=== PATIENT | female | born 1985 | race Caucasian/White ===

== ENCOUNTER 2017-09-22 00:16 | Emergency (ER) | payer MEDICAID ==
[~2017-09-22] VITALS: Ht 167.6 cm; Wt 63.5 kg
[~2017-09-22 00:16] MED LIST: FLUO20CA25 PO; IBP600T1 PO; METR500T PO; NITR-65 PO; OXYC1TAB87 PO; PREN1TAB39 PO
[2017-09-22] MEDS ORDERED: ACETAMINOPHEN 500 MG TAB (TYLENOL) PO ONE (00:45)
[2017-09-22] MEDS ORDERED: IBUPROFEN 800 MG (MOTRIN) TAB PO ONE (00:45)
[2017-09-22 00:52] LABS: BASOPHILS # (AUTO) 0.1 10^3/uL (0.0-0.1); BASOPHILS % (AUTO) 0 % (0-10); EOSINOPHILS # (AUTO) 0.2 10^3/uL (0.0-0.3); EOSINOPHILS % (AUTO) 1 % (0-10); HEMATOCRIT 43 % (35-52); HEMOGLOBIN 15.4 G/DL (11.5-16.0); LYMPHOCYTES # (AUTO) 2.7 X 10^3 (1.0-4.0); LYMPHOCYTES % (AUTO) 14 % (12-44); MEAN CORPUSCULAR HEMOGLOBIN 33 PG (25-34); MEAN CORPUSCULAR HGB CONC 36 G/DL (32-36); MEAN CORPUSCULAR VOLUME 91 FL (80-99); MEAN PLATELET VOLUME 9.2 FL (7.4-10.4); MONOCYTES # (AUTO) 1.6 X 10^3 (0.0-1.0); MONOCYTES % (AUTO) 9 % (0-12); NEUTROPHILS % (AUTO) 76 % (42-75); PLATELET COUNT 374 10^3/uL (130-400); RED BLOOD COUNT 4.73 10^6/uL (4.35-5.85); RED CELL DISTRIBUTION WIDTH 12.8 % (10.0-14.5); WHITE BLOOD COUNT 18.6 10^3/uL (4.3-11.0)
--- NOTE | 2017-09-22 01:07 | ED Chest Pain ---
General Chief Complaint: Chest Pain Stated Complaint: CHEST PAIN FOR 2 MONTHS Nursing Triage Note: PT PRESENTS TO ER WITH COMPLAINT OF CHEST PAIN X2 MONTHS. STATES IT IS AROUND HER LEFT BREAST AREA. ALSO REPORTS A COUGH AND INTERMITTENT LEFT ARM NUMBNESS. Nursing Sepsis Screen: No Definite Risk Source: patient History of Present Illness Date Seen by Provider: Sep 22, 2017 Time Seen by Provider: 00:43 Initial Comments C/O DIFFUSE LEFT ANTERIOR CHEST PAIN FOR 2-3 MONTHS, OR LONGER NOTHING WORSENS OR IMPROVES PAIN NO RADIATION OF PAIN HAS NOT TAKEN ANYTHING FOR PAIN SYMPTOMS NO DIFFERENT TODAY HAS HAD A PRODUCTIVE COUGH FOR 2-3 WEEKS--GREEN SPUTUM HAS HAD GREEN SINUS DRAINAGE AND PAIN ALSO FOR A FEW WEEKS PT HAS TEMP OF 101--UNAWARE THAT SHE HAD FEVER NO SHORTNESS OF BREATH MULTIPLE SICK CONTACTS AT HOME WITH COLD SYMPTOMS PT IS SMOKER DENIES HISTORY OF SIMILAR OR HISTORY OF RESPIRATORY PROBLEMS LMP 08/28/17, NORMAL, IUD IN PL[facility] [place] Allergies and Home Medications Allergies Coded Allergies: No Known Drug Allergies (Verified , 07/31/08) Home Medications Amoxicillin/Potassium Clav 1 Each Tablet, 1 EACH PO BID Prescribed by: RANDALL HUDSON on 09/22/17202 Benzonatate 100 Mg Capsule, 1-2 TAB PO TID Prescribed by: RANDALL HUDSON on 09/22/17202 Fluoxetine HCl 20 Mg Capsule, 1 CAP PO DAILY, (Reported) Fluticasone Propionate 9.9 M[address] [facility].susp, 2 SPRAYS NS BID Prescribed by: RANDALL HUDSON on 09/22/17202 Guaifenesin/Dextromethorphan 1 Each Tbmp.12hr, 1 EACH PO BID Prescribed by: RANDALL HUDSON on 09/22/17202 Loratadine/Pseudoephedrine 1 Each Tab.er.12h, 1 EACH PO BID Prescribed by: RANDALL HUDSON on 09/22/17202 Methylprednisolone 4 Mg Tab.ds.pk, 4 MG PO UD Prescribed by: RANDALL HUDSON on 09/22/17202 Nitrofurantoin Monohyd/M-Cryst 100 Mg Capsule, 100 MG PO BID Prescribed by: RANDALL HUDSON on 08/28/150 Review of Systems Constitutional: see HPI EENTM: Nose Congestion Respiratory: See HPI, Cough, Denies Shortness of Air, Denies Wheezing Cardiovascular: See HPI, Chest Pain, Denies Edema, Denies Lightheadedness, Denies Palpitations, Denies Syncope Gastrointestinal: No Symptoms Reported Genitourinary: No Symptoms Reported Musculoskeletal: no symptoms reported Skin: no symptoms reported Psychiatric/Neurological: No Symptoms Reported Endocrine: No Symptoms Reported Hematologic/Lymphatic: No Symptoms Reported Past [id number] Hx Patient Social History Alcohol Use: Regular Use (COUPLE OF DRINKS A DAY) Recreational Drug Use: No Smoking Status: Current Everyday Smoker (<1 PPD) Recent Foreign Travel: No Contact w/Someone Who Travel: No Recent Infectious Disease Expo: No Recent Hopitalizations: No (knee surgery, T & A) Immunizations Up To Date Tetanus Booster (TDap): Unknown Date of Influenza Vaccine: Jun 05, 2013 Seasonal Allergies Seasonal Allergies: No Surgeries History of Surgeries: Yes (LEFT KNEE SCOPE; WISDOM TEETH EXTRACTED ) Surgeries: Adenoidectomy, Orthopedic, Tonsillectomy Respiratory History of Respiratory Disorde: No Cardiovascular History of Cardiac Disorders: No Neurological History of Neurological Disord: No Reproductive System Hx Reproductive Disorders: No Sexually Transmitted Disease: Yes (HISTORY OF GONORRHEA) 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 History: IUD Genitourinary History of Genitourinary Disor: No Gastrointestinal History of Gastrointestinal Di: No Musculoskeletal History of Musculoskeletal Dis: Yes (LEFT KNEE SCOPE) Endocrine History of Endocrine Disorders: No HEENT History of HEENT Disorders: Yes (S/P T&A) HEENT Disorders: Tonsilitis Cancer History of Cancer: No Psychosocial History of Psychiatric Problem: Yes Behavioral Health Disorders: Anxiety, Depression Integumentary History of Skin or Integumenta: No Blood Transfusions History of Blood Disorders: No Adverse Reaction to a Blood Tr: No Family Medical History Family Medial History: Patient reports no known family medical history. Physical Exam Vital Signs Vital Signs - First Documented 09/22/17 00:29 Temp 101.2 Pulse 111 Resp 20 B/P (MAP) 140/94 (109) Pulse Ox 97 O2 Delivery Room Air Capillary Refill : Less Than 3 Seconds General Appearance: No Apparent Distress, WD/WN HEENT: PERRL/EOMI, TMs Normal, Pharynx Normal, Other (NASAL MUCOSAL EDEMA AND CLEAR RHINORRHEA. DIFFUSE SINUS TENDERNESS, WITH MOST TENDERNESS OVER FRONTAL SINUSES) Neck: Full Range of Motion, Normal Inspection, Non Tender, Supple, No Carotid Bruit, No JVD, No Lymphadenopathy (L), No Lymphadenopathy (R) Respiratory: Normal Breath Sounds, No Accessory Muscle Use, No Respiratory Distress, Other (DIFFUSE LEFT ANTERIOR CHEST WALL TENDERNESS. 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 Norm as Tested Skin: Normal Color, Warm/Dry, No Rash, Tattoos/Piercings (MULTIPLE TATTOOS) Focused Exam Evaluation Lactate Level Laboratory Tests 09/22/17 00:58: Lactic Acid Level 1.66 Lactic Acid Level Laboratory Tests Test 09/22/17 00:58 Lactic Acid Level 1.66 MMOL/L (0.50-2.00) Progress/Results/Core Measures Results/Orders Lab Results Laboratory Tests Test 09/22/17 00:35 09/22/17 00:58 Range/Units White Blood Count 18.6 H 4.3-11.0 10^3/uL Red Blood Count 4.73 4.35-5.85 10^6/uL Hemoglobin 15.4 11.5-16.0 G/DL Hematocrit 43 35-52 % Mean Corpuscular Volume 91 80-99 FL Mean Corpuscular Hemoglobin 33 25-34 PG Mean Corpuscular Hemoglobin Concent 36 32-36 G/DL Red Cell Distribution Width 12.8 10.0-14.5 % Platelet Count 374 130-400 10^3/uL Mean Platelet Volume 9.2 7.4-10.4 FL Neutrophils (%) (Auto) 76 H 42-75 % Lymphocytes (%) (Auto) 14 12-44 % Monocytes (%) (Auto) 9 0-12 % Eosinophils (%) (Auto) 1 0-10 % Basophils (%) (Auto) 0 0-10 % Neutrophils # (Auto) 14.0 H 1.8-7.8 X 10^3 Lymphocytes # (Auto) 2.7 1.0-4.0 X 10^3 Monocytes # (Auto) 1.6 H 0.0-1.0 X 10^3 Eosinophils # (Auto) 0.2 0.0-0.3 10^3/uL Basophils # (Auto) 0.1 0.0-0.1 10^3/uL Neutrophils % (Manual) 81 % Lymphocytes % (Manual) 7 % Monocytes % (Manual) 10 % Eosinophils % (Manual) 1 % Band Neutrophils 1 % Blood Morphology Comment NORMAL Urine Color YELLOW Urine Clarity SLIGHTLY CLOUDY Urine pH 6 5-9 Urine Specific [place] 1.010 L 1.016-1.022 Urine Protein NEGATIVE NEGATIVE Urine Glucose (UA) NEGATIVE NEGATIVE Urine Ketones NEGATIVE NEGATIVE Urine Nitrite NEGATIVE NEGATIVE Urine Bilirubin NEGATIVE NEGATIVE Urine Urobilinogen NORMAL NORMAL MG/DL Urine Leukocyte Esterase 1+ H NEGATIVE Urine RBC (Auto) NEGATIVE NEGATIVE Urine RBC NONE /HPF Urine WBC RARE /HPF Urine Squamous Epithelial Cells 25-50 H /HPF Urine Crystals NONE /LPF Urine Bacteria TRACE /HPF Urine Casts NONE /LPF Urine Mucus NEGATIVE /LPF Urine Culture Indicated NO Sodium Level 139 135-145 MMOL/L Potassium Level 3.8 3.6-5.0 MMOL/L Chloride Level 105 98-107 MMOL/L Carbon Dioxide Level 19 L 21-32 MMOL/L Anion Gap 15 H 5-14 MMOL/L Blood Urea Nitrogen 6 L 7-18 MG/DL Creatinine 0.74 0.60-1.30 MG/DL Estimat Glomerular Filtration Rate > 60 BUN/Creatinine Ratio 8 Glucose Level 93 70-105 MG/DL Calcium Level 9.4 8.5-10.1 MG/DL Total Bilirubin 0.4 0.1-1.0 MG/DL Aspartate Amino Transf (AST/SGOT) 19 5-34 U/L Alanine Aminotransferase (ALT/SGPT) 19 0-55 U/L Alkaline Phosphatase 74 40-136 U/L Total Protein 8.2 6.4-8.2 GM/DL Albumin 4.6 H 3.2-4.5 GM/DL Serum Test, Qualitative NEGATIVE NEGATIVE Lactic Acid Level 1.66 0.50-2.00 MMOL/L Micro Results Microbiology 09/22/17 Influenza Types A,B Antigen (THIAGO) - Final, Complete My Orders Orders - RANDALL HUDSON DO Saline Lock/Iv-Start (09/22/17 00:43) Cbc With Automated Diff (09/22/17 00:43) Comprehensive Metabolic Panel (09/22/17 00:43) Hcg,Qualitative Serum (09/22/17 00:43) Lactic Acid Analyzer (09/22/17 00:43) Ua Culture If Indicated (09/22/17 00:43) Blood Culture (09/22/17 00:43) Influenza A And B Antigens (09/22/17 00:43) Chest Pa/Lat (2 View) (09/22/17 00:43) Acetaminophen Tablet (Tylenol Tablet) (09/22/17 00:45) Ibuprofen Tablet (Motrin Tablet) (09/22/17 00:45) Manual Differential (09/22/17 00:35) Ceftriaxone Injection (Rocephin Injectio (09/22/17 02:00) Ketorolac Injection (Toradol Injection) (09/22/17 02:00) Medications Given in ED Current Medications Medications Dose Ordered Sig/Barrett Route Start Time Stop Time Status Last Admin Dose Admin Acetaminophen 1,000 mg ONCE ONCE PO 09/22/17 00:45 09/22/17 00:46 DC 09/22/17 00:55 1,000 MG Ibuprofen 800 mg ONCE ONCE PO 09/22/17 00:45 09/22/17 00:46 DC 09/22/17 00:55 800 MG Vital Signs/I&O Vital Sign - Last 12Hours 09/22/17 00:29 Temp 101.2 Pulse 111 Resp 20 B/P (MAP) 140/94 (109) Pulse Ox 97 O2 Delivery Room Air Blood Pressure Mean: 109 Diagnostic Imaging Comments CXR--NO ACUTE PROCESS, PENDING RADIOLOGIST REVIEW Reviewed: Reviewed by Me Departure Impression Impression: Primary Impression: Bronchitis Additional Impressions: LEFT ANTEROR CHEST WALL PAIN Sinusitis Disposition: 01 HOME, SELF-CARE Condition: Stable Departure-Patient Inst. Referrals: NO,LOCAL PHYSICIAN (PCP/Family) Primary Care Physician Patient Instructions: Acute Bronchitis, Adult (DC), Costochondritis (DC), Sinusitis, Adult (DC) Add. Discharge Instructions: LOTS OF CLEAR LIQUIDS TYLENOL 1 GRAM / MOTRIN 800 MG 4 TIMES A DAY FOR PAIN OR FEVER FOLLOW UP WITH YOUR DR IN 4-5 DAYS FOR FURTHER CARE All discharge instructions reviewed with patient and/or family. Voiced understanding. Scripts Benzonatate (Tessalon Perle) 100 Mg Capsule 1-2 TAB PO TID for Cough, #30 CAP Prov: RANDALL HUDSON DO 09/22/17 Guaifenesin/Dextromethorphan (Mucinex Dm ER 1,200-60 mg Tab) 1 Each Tbmp.12hr 1 EACH PO BID for 10 Days, #20 EA Prov: RANDALL HUDSON DO 09/22/17 Methylprednisolone (Medrol) 4 Mg Tab.ds.pk 4 MG PO UD, #1 PKG Prov: RANDALL HUDSON DO 09/22/17 Fluticasone Propionate (Flonase Allergy Relief) 9.9 [address] [facility].susp 2 SPRAYS NS BID, #1 SPRAY Prov: RANDALL HUDSON DO 09/22/17 Loratadine/Pseudoephedrine (Claritin-D 12 Hour Tablet) 1 Each Tab.er.12h 1 EACH PO BID for Congestion, #30 TAB Prov: RANDALL HUDSON DO 09/22/17 Amoxicillin/Potassium Clav (Augmentin 875-125 Tablet) 1 Each Tablet 1 EACH PO BID for INFECTION, #30 TAB Prov: RANDALL HUDSON DO 09/22/17 RANDALL HUDSON DO Sep 22, 2017 01:07
[2017-09-22 01:11] LABS: ALANINE AMINOTRANSFERASE 19 U/L (0-55); ALBUMIN 4.6 GM/DL (3.2-4.5); ALKALINE PHOSPHATASE 74 U/L (40-136); BILIRUBIN,TOTAL 0.4 MG/DL (0.1-1.0); BUN/CREATININE RATIO 8; CALCIUM 9.4 MG/DL (8.5-10.1); CARBON DIOXIDE 19 MMOL/L (21-32); CHLORIDE 105 MMOL/L (98-107); CREATININE SERUM 0.74 MG/DL (0.60-1.30); GFR ESTIMATED > 60; GLUCOSE 93 MG/DL (70-105); POTASSIUM 3.8 MMOL/L (3.6-5.0); SODIUM 139 MMOL/L (135-145); TOTAL PROTEIN 8.2 GM/DL (6.4-8.2)
[2017-09-22 01:12] LABS: BILIRUBIN,URINE NEGATIVE (NEGATIVE); CLARITY,URINE SLIGHTLY CLOUDY; COLOR,URINE YELLOW; GLUCOSE, URINE (UA) NEGATIVE (NEGATIVE); KETONES,URINE NEGATIVE (NEGATIVE); LEUKOCYTE ESTERASE ,URINE 1+ (NEGATIVE); NITRITE,URINE NEGATIVE (NEGATIVE); PH,URINE 6 (5-9); PROTEIN,URINE NEGATIVE (NEGATIVE); UROBILINOGEN,URINE NORMAL (NORMAL)
[2017-09-22 01:37] LABS: BACTERIA,URINE TRACE /HPF; SQUAMOUS EPITHELIAL CELL,UR 25-50 /HPF; WBC,URINE RARE /HPF
[2017-09-22 01:38] LABS: BAND NEUTROPHILS 1 %; EOSINOPHILS % (MANUAL) 1 %; LYMPHOCYTES % (MANUAL) 7 %; MONOCYTES % (MANUAL) 10 %; NEUTROPHILS % (MANUAL) 81 %; RBC MORPH NORMAL
[2017-09-22] MEDS ORDERED: KETOROLAC 30 MG/ML VIAL IVP ONE (02:00)
[2017-09-22] MEDS ORDERED: cefTRIAXone INJECTION 1,000 MG in NS (IVPB) 50 ML IV ONE (02:00)
[2017-09-22] MEDS ORDERED: GUAI1TBM19 PO (02:03)
[2017-09-22] MEDS ORDERED: AMOX-358 PO (02:03)
[2017-09-22] MEDS ORDERED: METH4TAB PO (02:03)
[2017-09-22] MEDS ORDERED: LORA1TAB59 PO (02:03)
[2017-09-22] MEDS ORDERED: FLUT9.9S NS (02:03)
[2017-09-22] MEDS ORDERED: BENZ-13 PO (02:03)
[2017-09-22 03:13] VITALS: BP 130/88
--- NOTE | 2017-09-22 08:03 | Diagnostic Imaging Report ---
INDICATION: Cough for 2 months FINDINGS: Frontal and lateral views of the chest demonstrates a left basilar infiltrate. Heart size and vascularity are normal. There are no effusions. IMPRESSION: There is a left basilar infiltrate. Dictated by: Dictated on workstation # [id number]
== END 2017-09-22 03:13 | disposition home or self-care (01) ==
LOC: EDUNIT# 00:16 → EEVIPCON 00:19 → ER 00:19
DX: J40 Bronchitis, not specified as acute or chronic (principal); J32.9 Chronic sinusitis, unspecified; F41.9 Anxiety disorder, unspecified; F32.9 Major depressive disorder, single episode, unspecified; F17.210 Nicotine dependence, cigarettes, uncomplicated; Z32.02 Encounter for pregnancy test, result negative; Z87.09 Personal history of other diseases of the respiratory system; Z97.5 Presence of (intrauterine) contraceptive device; Z90.89 Acquired absence of other organs
CPT/HCPCS: 36415; 71046; 80053; 81000; 83605; 84703; 85007; 85027; 87040; 87804

== ENCOUNTER 2018-06-11 15:17 | Day surgery (SDC) | payer MEDICAID, OTHER ==
[~2018-06-11] VITALS: Ht 167.6 cm; Wt 66.5 kg
[~2018-06-11 15:17] MED LIST changes: +AMOX-358 PO; +BENZ100C18 PO; +FLUT9.9S NS; +GUAI1TBM19 PO; +LORA1TAB59 PO; +METH4TAB PO
--- OUTSIDE RECORDS SUMMARY | 2018-06-11 15:26 | XMS REPORT | Clinical Summary ---
Author Author [facility] Organization [facility] Address Unknown Phone Unavailable Care Team Providers Care Copping Machine Operator Name Role Phone PCP Unavailable Allergies Not on File Current Medications Not on file Active Problems Not on file Social History Tobacco Use Types Packs/Day Years Used Date Never Assessed Sex Assigned at Date Recorded Not on file Last Filed Vital Signs Not on file Plan of Treatment Not on file Results Not on filefrom Last 3 Months
--- OUTSIDE RECORDS SUMMARY | 2018-06-11 15:27 | XMS REPORT | Continuity of Care Document ---
Author Author [facility] Organization [facility] Address Unknown Phone Unavailable Care Team Providers Care Habitat Management Coordinator Name Role Phone TONIO MEDINA MD PP Insurance Providers Payer Name Policy Number Subscriber Name Relationship [facility] [id number] Kb Pruitt Self / Same As Patient Advance Directives Directive Response Recorded Date Advance Directives N 02/06/13 4:14pm Health Care Power of Assembler Billiard Table N 07/31/08 6:31pm Organ Donor N 07/31/08 6:31pm Problems No Known Problems or Medical conditions. Allergies, Adverse Reactions, Alerts Allergen Type Severity Reaction Last Updated No Known Drug Allergies 07/31/08 Medications Medication Dose Units Route Sig Qty Days Metronidazole (Flagyl 500 Mg) 1 Each PO BID 12 Vits W-Ca,Fe,Fa(<1MG) () 1 Each PO Response Recorded Date/Time Status not known Unknown Results No Known Relevant Diagnostic Tests, Laboratory Data and/or Discharge Summary. Procedures Procedure Code Date MANUAL ASSIST DELIV NEC 73.59 08/02/08 REPAIR OB LACERATION NEC 75.69 08/21/10 Encounters Encounter Location Date/Time Discharged Inpatient [facility] 3:40pm Departed Emergency Room [facility] 11/04 1:04am
--- OUTSIDE RECORDS SUMMARY | 2018-06-11 15:27 | XMS REPORT | Continuity of Care Document ---
Author Author [facility] Organization [facility] Address Unknown Phone Unavailable Care Team Providers Care Food Mixer Assembler Name Role Phone TONIO MEDINA MD PP Insurance Providers Payer Name Policy Number Subscriber Name Relationship [facility] [id number] Amy Pruitt Self / Same As Patient Advance Directives Directive Response Recorded Date Advance Directives N 02/06/13 4:14pm Health Care Power of Slice Cutting Machine Operator Helper N 07/31/08 6:31pm Organ Donor N 07/31/08 6:31pm Problems No Known Problems or Medical conditions. Allergies, Adverse Reactions, Alerts Allergen Type Severity Reaction Last Updated No Known Drug Allergies 07/31/08 Medications Medication Dose Units Route Sig Qty Days Metronidazole (Flagyl 500 Mg) 1 Each PO BID 12 Vits W-Ca,Fe,Fa(<1MG) () 1 Each PO Response Recorded Date/Time Status not known Unknown Results Test Date Result Interp. Ref. Range Anisocytosis July 09, 2008 5:06am Slight - Band Neutrophils July 09, 2008 5:06am 5 % - Basophils # (Auto) August 01, 2008 5:00am 0.0 10^3/uL N 0.0-0.1 Basophils (%) (Auto) August 01, 2008 5:00am 0 % N 0-10 Eosinophils # (Auto) August 01, 2008 5:00am 0.0 10^3/uL N 0.0-0.3 Eosinophils % (Manual) July 09, 2008 5:06am 1 % - Eosinophils (%) (Auto) August 01, 2008 5:00am 0 % N 0-10 HIV (1&2) Antibody April 04, 2008 1:28pm Nonreactive - Hematocrit August 22, 2010 6:30am 30 % L 35-52 Hemoglobin August 22, 2010 6:30am 10.4 G/DL L 11.5-16.0 Hepatitis B Surface Antibody April 04, 2008 1:28pm 0.62 l INDEX - Hepatitis Bs Antibody Interpret April 04, 2008 1:28pm Not imm L - Lymphocytes # (Auto) August 01, 2008 5:00am 1.9 X 10^3 N 1.0-4.0 Lymphocytes % (Manual) July 09, 2008 5:06am 21 % - Lymphocytes (%) (Auto) August 01, 2008 5:00am 10 % L 12-44 Maternal Serum Screen April 04, 2008 1:28pm See footnote - Mean Corpuscular Hemoglobin August 22, 2010 6:30am 33 PG N 25-34 Mean Corpuscular Hemoglobin Concent August 22, 2010 6:30am 35 G/DL N 32-36 Mean Corpuscular Volume August 22, 2010 6:30am 94 FL N 80-99 Mean Platelet Volume August 22, 2010 6:30am 9.6 FL N 7.4-10.4 Monocytes # (Auto) August 01, 2008 5:00am 1.3 X 10^3 H 0.0-1.0 Monocytes % (Manual) July 09, 2008 5:06am 3 % - Monocytes (%) (Auto) August 01, 2008 5:00am 7 % N 0-12 Neutrophils # (Auto) August 01, 2008 5:00am 16.3 X 10^3 H 1.8-7.8 Neutrophils % (Manual) July 09, 2008 5:06am 69 % - Neutrophils (%) (Auto) August 01, 2008 5:00am 83 % H 42-75 Platelet Count August 22, 2010 6:30am 230 10^3/uL N 130-400 Reactive Lymphocytes July 09, 2008 5:06am 1 % - Red Blood Count August 22, 2010 6:30am 3.18 10^6/uL L 4.35-5.85 Red Cell Distribution Width August 22, 2010 6:30am 12.8 % N 10.0-14.5 Rubella Screen April 04, 2008 1:28pm Immune - Ur Tricyclic Antidepressants Screen February 06, 2013 5:30pm NEGATIVE - Urine Amorphous Sediment February 06, 2013 12:00am RARE ALISHA URATES /LPF H - Urine Amphetamines Screen February 06, 2013 5:30pm NEGATIVE - Urine Bacteria February 06, 2013 5:30pm NEGATIVE /HPF - Urine Barbiturates Screen February 06, 2013 5:30pm NEGATIVE - Urine Benzodiazepines Screen February 06, 2013 5:30pm NEGATIVE - Urine Bilirubin February 06, 2013 5:30pm NEGATIVE - Urine Casts February 06, 2013 5:30pm NONE / LPF - Urine Clarity February 06, 2013 5:30pm CLEAR - Urine Cocaine Screen February 06, 2013 5:30pm NEGATIVE - Urine Color February 06, 2013 5:30pm YELLOW - Urine Crystals February 06, 2013 5:30pm NONE /LPF - Urine Culture Indicated February 06, 2013 5:30pm NO - Urine Glucose (UA) February 06, 2013 5:30pm NEGATIVE - Urine Ketones February 06, 2013 5:30pm NEGATIVE - Urine Leukocyte Esterase February 06, 2013 5:30pm NEGATIVE - Urine Methamphetamines Screen February 06, 2013 5:30pm NEGATIVE - Urine Mucus February 06, 2013 5:30pm TRACE / LPF - Urine Nitrite February 06, 2013 5:30pm NEGATIVE - Urine Opiates Screen February 06, 2013 5:30pm NEGATIVE - Urine Phencyclidine Screen February 06, 2013 5:30pm NEGATIVE - Urine Propoxyphene Screen February 06, 2013 5:30pm NEGATIVE - Urine Protein February 06, 2013 5:30pm NEGATIVE - Urine RBC February 06, 2013 5:30pm NONE / HPF - Urine Specific [place] February 06, 2013 5:30pm 1.005 L - Urine Squamous Epithelial Cells February 06, 2013 12:00am 5-10 /HPF - Urine Urobilinogen February 06, 2013 5:30pm NORMAL MG/DL - Urine WBC February 06, 2013 5:30pm 0-2 /HPF - Urine pH February 06, 2013 5:30pm 7 - White Blood Count August 22, 2010 6:30am 11.5 10^3/uL H 4.3-11.0 Lab Scanned Report January 02, 2010 1:38pm LAB Reports [id number] - Urine Oxycodone Screen February 06, 2013 5:30pm NEGATIVE - Urine Methadone Screen February 06, 2013 5:30pm NEGATIVE - Urine Cannabinoids Screen February 06, 2013 5:30pm POSITIVE H - Urine Buprenorphine February 06, 2013 5:30pm NEGATIVE - Urine RBC (Auto) February 06, 2013 5:30pm NEGATIVE - Procedures Procedure Code Date MANUAL ASSIST DELIV NEC 73.59 08/02/08 REPAIR OB LACERATION NEC 75.69 08/21/10 Urine Culture 04/04/08 Encounters Encounter Location Date/Time Discharged Inpatient [facility] 7:27pm Departed Emergency Room [facility] 11/04 1:04am
--- OUTSIDE RECORDS SUMMARY | 2018-06-11 15:27 | XMS REPORT | Continuity of Care Document ---
Author Author [facility] Organization [facility] Address Unknown Phone Unavailable Allergies Active Description Code Type Severity Reaction Onset Reported/Identified Relationship to Patient Clinical Status Yes No Known Drug Allergies [id number] Drug Allergy Unknown N/A 07/31/2008 Medications There is no data. Problems Date Dx Coded Attending Type Code Diagnosis Diagnosed By 04/30/2010 Ot 648.93 04/30/2010 Ot 845.00 04/30/2010 Ot 959.7 04/30/2010 Ot E000.8 04/30/2010 Ot E849.0 04/30/2010 Ot E927.8 08/20/2010 Ot 644.13 08/22/2010 Ot 649.01 08/22/2010 Ot 664.81 08/22/2010 Ot V06.1 08/22/2010 Ot V27.0 02/07/2013 TONIO MEDINA MD Ot 041.89 BACTERIAL INFECTION DUE TO OTHER SPECIFI 02/07/2013 TONIO MEDINA MD Ot 644.03 THRT CARLA LABOR-ANTEPART 02/07/2013 TONIO MEDINA MD Ot 646.63 INFECTION-ANTEPARTUM 02/07/2013 TONIO MEDINA MD Ot 649.03 TOBACCO USE DISOR COMP PREG/CHILDBIRTH/P 04/02/2013 TONIO MEDINA MD Ot 644.03 THRT CARLA LABOR-ANTEPART 06/05/2013 TONIO MEDINA MD Ot 649.01 TOBACCO USE DISORDER COMP PREG/CHILDBIRT 06/05/2013 TONIO MEDINA MD Ot V04.81 ND FOR PROPHYLACTIC VACCIN AND INOCULATI 06/05/2013 TONIO MEDINA MD Ot V27.0 DELIVER-SINGLE LIVEBORN 12/18/2013 RON MEDINA MD Ot 623.8 NONINFLAM DIS VAGINA NEC 12/18/2013 RON MEDINA MD Ot 640.03 THREATEN ABORT-ANTEPART 08/28/2015 Ot F17.210 NICOTINE DEPENDENCE, CIGARETTES, UNCOMPL 08/28/2015 Ot N39.0 URINARY TRACT INFECTION, SITE NOT SPECIF 09/04/2015 Ot 649.63 09/04/2015 ADAM COYNE, TONIO Vinson Ot 649.63 09/04/2015 ADAM COYNE, TONIO Vinson Ot 637.92 09/05/2015 Ot 649.63 09/05/2015 ADAM COYNE, TONIO Vinson Ot 649.63 09/05/2015 ADAM COYNE, TONIO Vinson Ot 637.92 09/22/2017 ADAM COYNE, TONIO Vinson Ot 649.63 UTERINE SIZE DATE DISCREPANCY, ANTEPARTU 09/22/2017 ADAM COYNE, TONIO Vinson Ot 637.92 AB NOS UNCOMPLICAT-COMP 09/22/2017 RANDALL HUDSON DO Ot F17.210 NICOTINE DEPENDENCE, CIGARETTES, UNCOMPL 09/22/2017 RANDALL HUDSON DO Ot F32.9 MAJOR DEPRESSIVE DISORDER, SINGLE EPISOD 09/22/2017 RANDALL HUDSON DO Ot F41.9 ANXIETY DISORDER, UNSPECIFIED 09/22/2017 RANDALL HUDSON DO Ot J32.9 CHRONIC SINUSITIS, UNSPECIFIED 09/22/2017 RANDALL HUDSON DO Ot J40 BRONCHITIS, NOT SPECIFIED ACUTE OR CH 09/22/2017 RANDALL HUDSON DO Ot R07.9 CHEST PAIN, UNSPECIFIED 09/22/2017 RANDALL HUDSON DO Ot Z32.02 ENCOUNTER FOR TEST, RESULT NEG 09/22/2017 RANDALL HUDSON DO Ot Z87.09 PERSONAL HISTORY OF OTHER DISEASES OF TH 09/22/2017 RANDALL HUDSON DO Ot Z90.89 ACQUIRED ABSENCE OF OTHER ORGANS 09/22/2017 RANDALL HUDSON DO Ot Z97.5 PRESENCE OF (INTRAUTERINE) CONTRACEPTIVE 09/24/2017 RANDALL HUDSON DO Ot F17.210 NICOTINE DEPENDENCE, CIGARETTES, UNCOMPL 09/24/2017 RANDALL HUDSON DO Ot F32.9 MAJOR DEPRESSIVE DISORDER, SINGLE EPISOD 09/24/2017 RANDALL HUDSON DO Ot F41.9 ANXIETY DISORDER, UNSPECIFIED 09/24/2017 RANDALL HUDSON DO Ot J32.9 CHRONIC SINUSITIS, UNSPECIFIED 09/24/2017 RANDALL HUDSON DO Ot J40 BRONCHITIS, NOT SPECIFIED ACUTE OR CH 09/24/2017 RANDALL HUDSON DO Ot R07.9 CHEST PAIN, UNSPECIFIED 09/24/2017 RANDALL HUDSON DO Ot Z32.02 ENCOUNTER FOR TEST, RESULT NEG 09/24/2017 RANDALL HUDSON DO Ot Z87.09 PERSONAL HISTORY OF OTHER DISEASES OF TH 09/24/2017 RANDALL HUDSON DO Ot Z90.89 ACQUIRED ABSENCE OF OTHER ORGANS 09/24/2017 RANDALL HUDSON DO Ot Z97.5 PRESENCE OF (INTRAUTERINE) CONTRACEPTIVE 11/03/2017 ADAM COYNE, TONIO Vinson Ot 649.63 UTERINE SIZE DATE DISCREPANCY, ANTEPARTU 11/03/2017 ADAM COYNE, TONIO Vinson Ot 637.92 AB NOS UNCOMPLICAT-COMP Procedures Code Description Performed By Performed On 73.59 MANUAL ASSIST DELIV NEC 06/03/2013 Results Test Result Range Complete blood count (CBC) with automated white blood cell (WBC) differential - 09/22/17 00:35 Blood leukocytes automated count (number/volume) 18.6 10*3/uL 4.3-11.0 Blood erythrocytes automated count (number/volume) 4.73 10*6/uL 4.35-5.85 Venous blood hemoglobin measurement (mass/volume) 15.4 g/dL 11.5-16.0 Blood hematocrit (volume fraction) 43 % 35-52 Automated erythrocyte mean corpuscular volume 91 [foz_us] 80-99 Automated erythrocyte mean corpuscular hemoglobin (mass per erythrocyte) 33 pg 25-34 Automated erythrocyte mean corpuscular hemoglobin concentration measurement ( mass/volume) 36 g/dL 32-36 Automated erythrocyte distribution width ratio 12.8 % 10.0-14.5 Automated blood platelet count (count/volume) 374 10*3/uL 130-400 Automated blood platelet mean volume measurement 9.2 [foz_us] 7.4-10.4 Automated blood neutrophils/100 leukocytes 76 % 42-75 Automated blood lymphocytes/100 leukocytes 14 % 12-44 Blood monocytes/100 leukocytes 9 % 0-12 Automated blood eosinophils/100 leukocytes 1 % 0-10 Automated blood basophils/100 leukocytes 0 % 0-10 Blood neutrophils automated count (number/volume) 14.0 10*3 1.8-7.8 Blood lymphocytes automated count (number/volume) 2.7 10*3 1.0-4.0 Blood monocytes automated count (number/volume) 1.6 10*3 0.0-1.0 Automated eosinophil count 0.2 10*3/uL 0.0-0.3 Automated blood basophil count (count/volume) 0.1 10*3/uL 0.0-0.1 Serum or plasma choriogonadotropin ( test) detection - 09/22/17 00:35 Serum or plasma choriogonadotropin ( test) detection NEGATIVE NEGATIVE Comprehensive metabolic panel - 09/22/17 00:35 Serum or plasma sodium measurement (moles/volume) 139 mmol/L 135-145 Serum or plasma potassium measurement (moles/volume) 3.8 mmol/L 3.6-5.0 Serum or plasma chloride measurement (moles/volume) 105 mmol/L 98-107 Carbon dioxide 19 mmol/L 21-32 Serum or plasma anion gap determination (moles/volume) 15 mmol/L 5-14 Serum or plasma urea nitrogen measurement (mass/volume) 6 mg/dL 7-18 Serum or plasma creatinine measurement (mass/volume) 0.74 mg/dL 0.60-1.30 Serum or plasma urea nitrogen/creatinine mass ratio 8 NRG Serum or plasma creatinine measurement with calculation of estimated glomerular filtration rate > NRG Serum or plasma glucose measurement (mass/volume) 93 mg/dL 70-105 Serum or plasma calcium measurement (mass/volume) 9.4 mg/dL 8.5-10.1 Serum or plasma total bilirubin measurement (mass/volume) 0.4 mg/dL 0.1-1.0 Serum or plasma alkaline phosphatase measurement (enzymatic activity/volume) 74 U/L 40-136 Serum or plasma aspartate aminotransferase measurement (enzymatic activity/ volume) 19 U/L 5-34 Serum or plasma alanine aminotransferase measurement (enzymatic activity/volume ) 19 U/L 0-55 Serum or plasma protein measurement (mass/volume) 8.2 g/dL 6.4-8.2 Serum or plasma albumin measurement (mass/volume) 4.6 g/dL 3.2-4.5 Influenza virus A and B antigen detection - 09/22/17 00:35 FLU RESULT NEGATIVE FOR INFLUENZA A AND B ANTIGENS BY IA NRG Complete urinalysis with reflex to culture - 09/22/17 00:35 Urine color determination YELLOW NRG Urine clarity determination SLIGHTLY CLOUDY NRG Urine pH measurement by test strip 6 5-9 Specific gravity of urine by test strip 1.010 1.016- 1.022 Urine protein assay by test strip, semi-quantitative NEGATIVE NEGATIVE Urine glucose detection by automated test strip NEGATIVE NEGATIVE Erythrocytes detection in urine sediment by light microscopy NEGATIVE NEGATIVE Urine ketones detection by automated test strip NEGATIVE NEGATIVE Urine nitrite detection by test strip NEGATIVE NEGATIVE Urine total bilirubin detection by test strip NEGATIVE NEGATIVE Urine urobilinogen measurement by automated test strip (mass/volume) NORMAL NORMAL Urine leukocyte esterase detection by dipstick 1+ NEGATIVE Automated urine sediment erythrocyte count by microscopy (number/high power field) NONE NRG Automated urine sediment leukocyte count by microscopy (number/high power field ) RARE NRG Bacteria detection in urine sediment by light microscopy TRACE NRG Squamous epithelial cells detection in urine sediment by light microscopy 25-50 NRG Crystals detection in urine sediment by light microscopy NONE NRG Casts detection in urine sediment by light microscopy NONE NRG Mucus detection in urine sediment by light microscopy NEGATIVE NRG Complete urinalysis with reflex to culture NO NRG Blood manual differential performed detection - 09/22/17 00:35 Blood monocytes/100 leukocytes 10 % NRG Manual blood segmented neutrophils/100 leukocytes 81 % NRG Blood band neutrophils/100 leukocytes 1 % NRG Manual blood lymphocytes/100 leukocytes 7 % NRG Manual eosinophils/100 leukocytes in nose 1 % NRG Blood erythrocyte morphology finding identification NORMAL NRG Blood lactic acid measurement (moles/volume) - 09/22/17 00:58 Blood lactic acid measurement (moles/volume) 1.66 mmol/L 0.50-2.00 Bacterial blood culture - 09/22/17 00:58 Bacterial blood culture NG NRG Bacterial blood culture - 09/22/17 01:50 Bacterial blood culture NG NRG Encounters ACCT No. Visit Date/Time Discharge Status Pt. Type Provider Facility Loc./Unit Complaint [id number] 09/22/2017 00:19:00 09/22/2017 03:13:00 DIS Emergency RANDALL HUDSON DO [facility] ER CHEST PAIN FOR 2 MONTHS [id number] 01/03/2014 07:48:00 01/03/2014 23:59:59 CLS Outpatient DAAMTONIO PRESLEY MD [facility] RAD THREATENED AB [id number] 12/18/2013 12:57:00 12/18/2013 17:04:00 DIS Emergency RON MEDINA MD [facility] ER POSSIBLE MISCARRIAGE [id number] 06/03/2013 12:30:00 06/05/2013 13:30:00 DIS Inpatient TONIO MEDINA MD [facility] WS CONTRACTIONS [id number] 04/02/2013 11:13:00 04/02/2013 13:30:00 DIS Outpatient TONIO MEDINA MD [facility] WSo CONTRACTIONS [id number] 02/06/2013 15:40:00 02/07/2013 13:15:00 DIS Inpatient TONIO MEDINA MD [facility] WS PRE-TERM LABOR [id number] 12/24/2012 12:05:00 12/24/2012 23:59:59 CLS Outpatient TONIO MEDINA MD [facility] RAD SIZE DATE DIS [id number] 08/28/2015 19:47:00 Document Registration [id number] 08/20/2010 20:05:00 Document Registration [id number] 08/20/2010 11:58:00 Document Registration [id number] 04/30/2010 01:04:00 Document Registration [id number] 04/19/2010 15:04:00 Document Registration
--- OUTSIDE RECORDS SUMMARY | 2018-06-11 15:27 | XMS REPORT | Continuity of Care Document ---
Author Author [facility] Organization [facility] Address Unknown Phone Unavailable Care Team Providers Care Concert Manager Name Role Phone TONIO MEDINA MD PP Insurance Providers Payer Name Policy Number Subscriber Name Relationship [facility] [id number] Amy Pruitt Self / Same As Patient Advance Directives Directive Response Recorded Date Advance Directives N 04/02/13 11:20am Health Care Power of Cop [place] N 04/02/13 11:20am Organ Donor N 04/02/13 11:20am Problems No Known Problems or Medical conditions. Allergies, Adverse Reactions, Alerts Allergen Type Severity Reaction Last Updated No Known Drug Allergies 07/31/08 Medications Medication Dose Units Route Sig Qty Days Metronidazole (Flagyl 500 Mg) 1 Each PO BID 12 Vits W-Ca,Fe,Fa(<1MG) () 1 Each PO Response Recorded Date/Time Status not known Unknown Results Test Date Result Interp. Ref. Range Alanine Aminotransferase (ALT/SGPT) February 06, 2013 7:53pm 23 U/L L 30-65 Albumin February 06, 2013 7:53pm 2.9 G/DL L 3.4-5.0 Alkaline Phosphatase February 06, 2013 7:53pm 72 U/L N 50-136 Anisocytosis July 09, 2008 5:06am Slight - Aspartate Amino Transf (AST/SGOT) February 06, 2013 7:53pm 13 U/L L 15-37 BUN/Creatinine Ratio February 07, 2013 5:14am 8 - Band Neutrophils July 09, 2008 5:06am 5 % - Basophils # (Auto) August 01, 2008 5:00am 0.0 10^3/uL N 0.0-0.1 Basophils (%) (Auto) August 01, 2008 5:00am 0 % N 0-10 Blood Urea Nitrogen February 07, 2013 5:14am 7 MG/DL N 7-18 Calcium Level February 07, 2013 5:14am 7.9 MG/DL L 8.5-10.1 Carbon Dioxide Level February 07, 2013 5:14am 23 MMOL/L N 21-32 Chloride Level February 07, 2013 5:14am 107 MMOL/L N 101-110 Creatinine February 07, 2013 5:14am 0.9 MG/ DL N 0.6-1.3 Eosinophils # (Auto) August 01, 2008 5:00am 0.0 10^3/uL N 0.0-0.3 Eosinophils % (Manual) July 09, 2008 5:06am 1 % - Eosinophils (%) (Auto) August 01, 2008 5:00am 0 % N 0-10 Glucose Level February 07, 2013 5:14am 97 MG /DL N 74-106 HIV (1&2) Antibody April 04, 2008 1:28pm Nonreactive - Hematocrit February 06, 2013 7:53pm 30 % L 35-52 Hemoglobin February 06, 2013 7:53pm 10.4 G/ DL L 11.5-16.0 Hepatitis B Surface Antibody April [...] 1:28pm See footnote - Mean Corpuscular Hemoglobin February 06, 2013 7:53pm 32 PG N 25-34 Mean Corpuscular Hemoglobin Concent February 06, 2013 7:53pm 35 G/DL N 32-36 Mean Corpuscular Volume February 06, 2013 7:53pm 92 FL N 80-99 Mean Platelet Volume February 06, 2013 7:53pm 9.8 FL N 7.4-10.4 Monocytes # (Auto) August 01, 2008 5:00am 1.3 X 10^3 H 0.0-1.0 Monocytes % (Manual) July 09, 2008 5:06am 3 % - Monocytes (%) (Auto) August 01, 2008 5:00am 7 % N 0-12 Neisseria gonorrhoeae DNA Probe February 06, 2013 7:00pm NEG - Neutrophils # (Auto) August 01, 2008 5:00am 16.3 X 10^3 H 1.8-7.8 Neutrophils % (Manual) July 09, 2008 5:06am 69 % - Neutrophils (%) (Auto) August 01, 2008 5:00am 83 % H 42-75 Platelet Count February 06, 2013 7:53pm 213 10^3/uL N 130-400 Potassium Level February 07, 2013 5:14am 3.2 MMOL/L L 3.6-5.0 Reactive Lymphocytes July 09, 2008 5:06am 1 % - Red Blood Count February 06, 2013 7:53pm 3.22 10^6/uL L 4.35-5.85 Red Cell Distribution Width February 06, 2013 7:53pm 13.4 % N 10.0-14.5 Rubella Screen April 04, 2008 1:28pm Immune - Sodium Level February 07, 2013 5:14am 140 MMOL/L N 135-145 Total Bilirubin February 06, 2013 7:53pm 0.3 MG/DL N 0.0-1.0 Total Protein February 06, 2013 7:53pm 5.9 G /DL L 6.4-8.2 Ur Tricyclic Antidepressants Screen February 06, 2013 [...] 5:30pm NONE / HPF - Urine Specific [place] February 06, 2013 5:30pm 1.005 L - Urine Squamous Epithelial Cells February 06, 2013 12:00am 5-10 /HPF - Urine Urobilinogen February 06, 2013 5:30pm NORMAL MG/DL - Urine WBC February 06, 2013 5:30pm 0-2 /HPF - Urine pH February 06, 2013 5:30pm 7 - White Blood Count February 06, 2013 7:53pm 13.8 10^3/uL H 4.3-11.0 Lab Scanned Report January 02, 2010 1:38pm LAB Reports [id number] - Urine Oxycodone Screen February 06, 2013 5:30pm NEGATIVE - Urine Methadone Screen February 06, 2013 5:30pm NEGATIVE - Urine Cannabinoids Screen February 06, 2013 5:30pm POSITIVE H - Urine Buprenorphine February 06, 2013 5:30pm NEGATIVE - Urine RBC (Auto) February 06, 2013 5:30pm NEGATIVE - Procedures Procedure Code Date MANUAL ASSIST DELIV NEC 73.59 08/02/08 REPAIR OB LACERATION NEC 75.69 08/21/10 Genital Culture & GC Screen 02/06/13 Urine Culture 02/06/13 Encounters Encounter Location Date/Time Discharged Inpatient [facility] 3:40pm Departed Emergency Room [facility] 11/04 1:04am
--- NOTE | 2018-06-11 16:38 | ED GU-Female ---
General Chief Complaint: Abdominal/GI Problems Stated Complaint: ABD PAIN Nursing Triage Note: AMB TO ROOM C/O LOW ABD PAIN ONSET YESTERDAY. Nursing Sepsis Screen: No Definite Risk Source: patient Exam Limitations: no limitations History of Present Illness Date Seen by Provider: Jun 11, 2018 Time Seen by Provider: 16:38 Initial Comments 33-year-old female patient presents to the emergency department with complaints of right lower abdominal pain beginning yesterday. States the pain woke her up from sleep yesterday. Pain has progressively gotten worse. Does have some nausea without vomiting or diarrhea. Pain is worse with riding in the car and movement. Patient has been nothing by mouth since 1100. Has not had solid food since yesterday afternoon. Timing/Duration: yesterday, getting worse Severity/Quality: aching, stabbing Location: RLQ Radiation: suprapubic Activities at Onset: sleep Prior Genitourinary Problems: none Sexual John Sevier History: less than 2 months ago, single partner Modifying Factors: Worsens With Movement, Worsens With Palpation Allergies and Home Medications Allergies Coded Allergies: No Known Drug Allergies (Verified , 07/31/08) Patient Home Medication List Home Medication List Reviewed: Yes Review of Systems Review of Systems Constitutional: No chills, No fever, No malaise EENTM: no symptoms reported Respiratory: No cough, No phlegm, No short of breath Cardiovascular: No chest pain, No palpitations Gastrointestinal: see HPI, abdominal pain; No constipation, No diarrhea; loss of appetite; No melena; nausea; No vomiting Genitourinary: see HPI; denies burning, denies discharge, denies dysuria, denies frequency, denies flank pain, denies hematuria : No LMP: May 28, 2018 Musculoskeletal: No back pain Skin: no symptoms reported Psychiatric/Neurological: No Symptoms Reported All Other Systemes Reviewed Negative Unless Noted: Yes (Negative excepted noted.) Past Ecxtdah-Daazxu-Bngtqx Hx Past Med/Social Hx: Reviewed and Corrections made Patient Social History Alcohol Use: Occasionally Uses Recreational Drug Use: No Smoking Status: Current Everyday Smoker Recent Foreign Travel: No Contact w/Someone Who Travel: No Recent Infectious Disease Expo: No Recent Hopitalizations: No (knee surgery, T & A) Immunizations Up To Date Tetanus Booster (TDap): Unknown Date of Influenza Vaccine: Jun 05, 2013 Seasonal Allergies Seasonal Allergies: No Past Medical History Surgeries: Yes (LEFT KNEE SCOPE; WISDOM TEETH EXTRACTED ) Adenoidectomy, Orthopedic, Tonsillectomy Respiratory: No Cardiac: No Neurological: No : No Hx : 8 Hx Para: 6 Hx Total # of Abortions (Sp): 2 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 No Pertinent Family Hx Physical Exam Vital Signs Vital Signs - First Documented 06/11/18 15:27 Temp 96.1 Pulse 74 Resp 18 B/P (MAP) 123/77 (92) Pulse Ox 99 O2 Delivery Room Air Capillary Refill : Less Than 3 Seconds Height, Weight, BMI Height: 5'6.00" Weight: 135lbs. oz. 61.389969br; BMI Method:Stated General Appearance: WD/WN, no apparent distress HEENT: PERRL/EOMI, pharynx normal Neck: supple, normal inspection Cardiovascular: normal peripheral pulses, regular rate, rhythm, no edema, no murmur Respiratory: lungs clear, normal breath sounds, no respiratory distress, no accessory muscle use Gastrointestinal: normal bowel sounds, soft, no organomegaly; No distended; guarding (right lower quadrant guarding), rebound, tenderness (right lower quadrant tenderness), other (positive Rovsing sign) Back: normal inspection, no CVA tenderness Extremities: no pedal edema, normal capillary refill Neurologic/Psychiatric: alert, normal mood/affect, oriented x 3 Skin: normal color, warm/dry Progress/Results/Core Measures Suspected Sepsis Recent Fever Within 48 Hours: No Infection Criteria Present: None New/Unexplained Altered Menta: No Sepsis Screen: No Definite Risk SIRS Temperature:96.1 Pulse: 74 Respiratory Rate: 18 Laboratory Tests 06/11/18 17:03: White Blood Count 9.2 Blood Pressure 123 /77 Mean: 92 Laboratory Tests 06/11/18 17:03: Creatinine 0.73, Platelet Count 275, Total Bilirubin 0.8 Results/Orders Lab Results Laboratory Tests Test 06/11/18 16:55 06/11/18 17:03 Range/Units Urine Color YELLOW Urine Clarity VERY CLOUDY H Urine pH 6.5 5-9 Urine Specific [place] 1.015 L 1.016-1.022 Urine Protein 1+ H NEGATIVE Urine Glucose (UA) NEGATIVE NEGATIVE Urine Ketones 2+ H NEGATIVE Urine Nitrite NEGATIVE NEGATIVE Urine Bilirubin NEGATIVE NEGATIVE Urine Urobilinogen 1 NORMAL MG/DL Urine Leukocyte Esterase 2+ H NEGATIVE Urine RBC (Auto) 1+ H NEGATIVE Urine RBC 0-2 /HPF Urine WBC 10-25 H /HPF Urine Squamous Epithelial Cells 25-50 H /HPF Urine Crystals NONE /LPF Urine Bacteria MODERATE H /HPF Urine Casts NONE /LPF Urine Mucus MODERATE H /LPF Urine Culture Indicated YES White Blood Count 9.2 4.3-11.0 10^3/uL Red Blood Count 4.64 4.35-5.85 10^6/uL Hemoglobin 14.9 11.5-16.0 G/DL Hematocrit 44 35-52 % Mean Corpuscular Volume 95 80-99 FL Mean Corpuscular Hemoglobin 32 25-34 PG Mean Corpuscular Hemoglobin Concent 34 32-36 G/DL Red Cell Distribution Width 12.8 10.0-14.5 % Platelet Count 275 130-400 10^3/uL Mean Platelet Volume 10.0 7.4-10.4 FL Neutrophils (%) (Auto) 62 42-75 % Lymphocytes (%) (Auto) 28 12-44 % Monocytes (%) (Auto) 7 0-12 % Eosinophils (%) (Auto) 2 0-10 % Basophils (%) (Auto) 1 0-10 % Neutrophils # (Auto) 5.7 1.8-7.8 X 10^3 Lymphocytes # (Auto) 2.6 1.0-4.0 X 10^3 Monocytes # (Auto) 0.7 0.0-1.0 X 10^3 Eosinophils # (Auto) 0.2 0.0-0.3 10^3/uL Basophils # (Auto) 0.1 0.0-0.1 10^3/uL Sodium Level 139 135-145 MMOL/L Potassium Level 3.5 L 3.6-5.0 MMOL/L Chloride Level 104 98-107 MMOL/L Carbon Dioxide Level 23 21-32 MMOL/L Anion Gap 12 5-14 MMOL/L Blood Urea Nitrogen 7 7-18 MG/DL Creatinine 0.73 0.60-1.30 MG/DL Estimat Glomerular Filtration Rate > 60 BUN/Creatinine Ratio 10 Glucose Level 87 70-105 MG/DL Calcium Level 9.8 8.5-10.1 MG/DL Corrected Calcium 8.5-10.1 MG/DL Total Bilirubin 0.8 0.1-1.0 MG/DL Aspartate Amino Transf (AST/SGOT) 19 5-34 U/L Alanine Aminotransferase (ALT/SGPT) 23 0-55 U/L Alkaline Phosphatase 64 40-136 U/L C-Reactive Protein High Sensitivity 4.49 H 0.00-0.50 MG/DL Total Protein 8.1 6.4-8.2 GM/DL Albumin 4.8 H 3.2-4.5 GM/DL My Orders Orders - ROLO BOLTON Ua Culture If Indicated (06/11/18 15:49) Urine Bedside (06/11/18 15:49) Cbc With Automated Diff (06/11/18 17:08) Comprehensive Metabolic Panel (06/11/18 17:08) Hs C Reactive Protein (06/11/18 17:08) Saline Lock/Iv-Start (06/11/18 17:08) Ns Iv 1000 Ml (Sodium Chloride 0.9%) (06/11/18 17:08) Fentanyl Injection (Sublimaze Injection (06/11/18 17:08) Ondansetron Injection (Zofran Injectio (06/11/18 17:15) Urine Culture (06/11/18 16:55) Iohexol Injection (Omnipaque 350 Mg/Ml 1 (06/11/18 17:30) Contrast Received (Contrast Received) (06/11/18 17:30) Sodium Chloride Flush (Catheter Flush Sy (06/11/18 17:30) Ns (Ivpb) (Sodium Chloride 0.9%) (06/11/18 17:30) Ct Abd/Pelv W (Appendicitis) (06/11/18 17:44) Morphine Injection (Morphine Injection (06/11/18 17:58) Ns Iv 1000 Ml (Sodium Chloride 0.9%) (06/11/18 17:58) Saline Lock/Iv-Start (06/11/18 19:41) Ns Iv 1000 Ml (Sodium Chloride 0.9%) (06/11/18 19:41) Medications Given in ED Current Medications Medications Dose Ordered Sig/Barrett Route Start Time Stop Time Status Last Admin Dose Admin Iohexol 100 ml ONCE ONCE IV 06/11/18 17:30 06/11/18 17:31 DC 06/11/18 18:02 75 ML Ondansetron HCl 4 mg ONCE ONCE IVP 06/11/18 17:15 06/11/18 17:16 DC 06/11/18 17:16 4 MG Sodium Chloride 10 ml NEEDED PRN IV 06/11/18 17:30 06/11/18 18:02 10 ML Sodium Chloride 250 ml ONCE ONCE IV 06/11/18 17:30 06/11/18 17:31 DC 06/11/18 18:02 80 ML Sodium Chloride 1,000 ml @ 0 mls/hr Q0M ONCE IV 06/11/18 17:08 06/11/18 17:11 DC 06/11/18 17:16 1,000 MLS/HR Sodium Chloride 1,000 ml @ 0 mls/hr Q0M ONCE IV 06/11/18 17:58 06/11/18 17:59 DC 06/11/18 18:15 1,000 MLS/HR Sodium Chloride 1,000 ml @ 150 mls/hr Q6H40M ONCE IV 06/11/18 19:41 06/12/18 02:20 06/11/18 20:20 150 MLS/HR Vital Signs/I&O 06/11/18 15:27 Temp 96.1 Pulse 74 Resp 18 B/P (MAP) 123/77 (92) Pulse Ox 99 O2 Delivery Room Air Capillary Refill : Less Than 3 Seconds Blood Pressure Mean: 92 Diagnostic Imaging Diagonstic Imaging: CT Plain Films/CT/US/NM/MRI: abdomen, pelvis Comments CT ABD/PELV W (APPENDICITIS) PROCEDURE: CT abdomen and pelvis with contrast, rule out appendicitis. TECHNIQUE: Multiple contiguous axial images were obtained through the abdomen and pelvis after the administration of intravenous contrast. INDICATION: Right lower quadrant pain, nausea and vomiting. COMPARISON : None available. FINDINGS: Lower chest: The lung bases are clear. No pericardial or pleural effusion. Peritoneum: No free intraperitoneal air or fluid. Liver and biliary system: The liver is normal. The gallbladder is normal. No biliary duct dilation. Spleen and Pancreas: Spleen is normal. The pancreas enhances normally without mass lesion or peripancreatic inflammatory changes. Adrenals: Normal. tract: The kidneys enhance normally without suspicious mass or obstruction. Urinary bladder is distended without wall thickening. An IUD is appropriately positioned within the uterus. No concerning adnexal mass. Probable corpus luteum in the right ovary measures 1.9 x 1.7 cm. Dilated pelvic vessels can be seen with pelvic congestion syndrome. GI tract: Stomach is decompressed. No bowel obstruction. No pericolonic inflammatory changes. Appendix is dilated measuring up to 10 mm and has wall thickening. Periappendiceal inflammatory changes are present. No fluid collection to indicate abscess. Vasculature and Lymph nodes: Normal caliber aorta. No abdominal or pelvic lymphadenopathy. Musculoskeletal: No concerning osseous lesion. IMPRESSION: 1. Acute appendicitis. No perforation, abscess formation, or bowel obstruction. Dictated by: Dictated on workstation # [id number] Reviewed: Reviewed by Me (radiology report reviewed by me) Departure Communication (Admissions) Time/Spoke to Admitting Phy: 18:12 Dr. Reyes graciously accepts patient for OR admit for lap appy. Patient seen and evaluated. Urinalysis, and initial labs, and CT abdomen/ pelvis obtained. Patient was given IV fluids, zofran, fentanyl, and subsequently given morphine for intractable right lower quadrant pain. Patient reports improvement in pain with the morphine. 181 patient case discussed with dr. reyes. patient to be OR admit for lap appy. all laboratory findings, diagnostic study findings, and plan for admission with laparoscopic appendectomy discussed with the patient. Patient verbalized understanding and agrees with the treatment plan. Impression Primary Impression: Appendicitis Qualified Codes: K35.80 - Unspecified acute appendicitis Disposition: 09 ADMITTED INPATIENT Condition: Stable Admissions Decision to Admit Reason: Admit from ER (General) Decision to Admit/Date: Jun 11, 2018 Time/Decision to Admit Time: 18:13 Departure-Patient Inst. Referrals: NO,LOCAL PHYSICIAN (PCP/Family) Primary Care Physician ROLO BOLTON Jun 11, 2018 16:38
[2018-06-11 17:04] LABS: BILIRUBIN,URINE NEGATIVE (NEGATIVE); CLARITY,URINE VERY CLOUDY; COLOR,URINE YELLOW; GLUCOSE, URINE (UA) NEGATIVE (NEGATIVE); KETONES,URINE 2+ (NEGATIVE); LEUKOCYTE ESTERASE ,URINE 2+ (NEGATIVE); NITRITE,URINE NEGATIVE (NEGATIVE); PH,URINE 6.5 (5-9); PROTEIN,URINE 1+ (NEGATIVE); UROBILINOGEN,URINE 1 MG/DL (NORMAL)
[2018-06-11] MEDS ORDERED: NS IV 1000 ML 1,000 ML IV ONE ×3 (17:08→19:41)
[2018-06-11] MEDS ORDERED: fentaNYL INJECTION 100 MCG/2 ML AMP IVP STA (17:08)
[2018-06-11] MEDS ORDERED: ONDANSETRON 4 MG/2 ML (SDV) Z0FRAN IVP ONE (17:15)
[2018-06-11 17:19] LABS: BACTERIA,URINE MODERATE /HPF; RBC,URINE 0-2 /HPF; SQUAMOUS EPITHELIAL CELL,UR 25-50 /HPF
[2018-06-11] MEDS ORDERED: CATHETER FLUSH 10 ML SYR IV PRN (17:30)
[2018-06-11] MEDS ORDERED: RECEIVED CONTRAST (Hold Metformin) IV SCH (17:30)
[2018-06-11] MEDS ORDERED: IOHEXOL 350 MG/ML 100 ML (OMNIPAQUE 350) VIAL IV ONE (17:30)
[2018-06-11] MEDS ORDERED: NS 250 ML (IVPB) BAG IV ONE (17:30)
[2018-06-11 17:34] LABS: BASOPHILS # (AUTO) 0.1 10^3/uL (0.0-0.1); BASOPHILS % (AUTO) 1 % (0-10); EOSINOPHILS # (AUTO) 0.2 10^3/uL (0.0-0.3); EOSINOPHILS % (AUTO) 2 % (0-10); HEMATOCRIT 44 % (35-52); HEMOGLOBIN 14.9 G/DL (11.5-16.0); LYMPHOCYTES # (AUTO) 2.6 X 10^3 (1.0-4.0); LYMPHOCYTES % (AUTO) 28 % (12-44); MEAN CORPUSCULAR HEMOGLOBIN 32 PG (25-34); MEAN CORPUSCULAR HGB CONC 34 G/DL (32-36); MEAN CORPUSCULAR VOLUME 95 FL (80-99); MONOCYTES # (AUTO) 0.7 X 10^3 (0.0-1.0); MONOCYTES % (AUTO) 7 % (0-12); NEUTROPHILS # (AUTO) 5.7 X 10^3 (1.8-7.8); NEUTROPHILS % (AUTO) 62 % (42-75); PLATELET COUNT 275 10^3/uL (130-400); RED BLOOD COUNT 4.64 10^6/uL (4.35-5.85); RED CELL DISTRIBUTION WIDTH 12.8 % (10.0-14.5); WHITE BLOOD COUNT 9.2 10^3/uL (4.3-11.0)
[2018-06-11 17:47] LABS: ALANINE AMINOTRANSFERASE 23 U/L (0-55); ALBUMIN 4.8 GM/DL (3.2-4.5); ALKALINE PHOSPHATASE 64 U/L (40-136); BILIRUBIN,TOTAL 0.8 MG/DL (0.1-1.0); BUN/CREATININE RATIO 10; CALCIUM 9.8 MG/DL (8.5-10.1); CARBON DIOXIDE 23 MMOL/L (21-32); CHLORIDE 104 MMOL/L (98-107); CREATININE SERUM 0.73 MG/DL (0.60-1.30); GFR ESTIMATED > 60; GLUCOSE 87 MG/DL (70-105); POTASSIUM 3.5 MMOL/L (3.6-5.0); SODIUM 139 MMOL/L (135-145); TOTAL PROTEIN 8.1 GM/DL (6.4-8.2)
[2018-06-11] MEDS ORDERED: morphine INJ 10 MG/ML 1ML (SYR OR VIAL) IVP STA ×2 (17:58→21:29)
--- NOTE | 2018-06-11 18:27 | Diagnostic Imaging Report ---
PROCEDURE: CT abdomen and pelvis with contrast, rule out appendicitis. TECHNIQUE: Multiple contiguous axial images were obtained through the abdomen and pelvis after the administration of intravenous contrast. INDICATION: Right lower quadrant pain, nausea and vomiting. COMPARISON: None available. FINDINGS: Lower chest: The lung bases are clear. No pericardial or pleural effusion. Peritoneum: No free intraperitoneal air or fluid. Liver and biliary system: The liver is normal. The gallbladder is normal. No biliary duct dilation. Spleen and Pancreas: Spleen is normal. The pancreas enhances normally without mass lesion or peripancreatic inflammatory changes. Adrenals: Normal. tract: The kidneys enhance normally without suspicious mass or obstruction. Urinary bladder is distended without wall thickening. An IUD is appropriately positioned within the uterus. No concerning adnexal mass. Probable corpus luteum in the right ovary measures 1.9 x 1.7 cm. Dilated pelvic vessels can be seen with pelvic congestion syndrome. GI tract: Stomach is decompressed. No bowel obstruction. No pericolonic inflammatory changes. Appendix is dilated measuring up to 10 mm and has wall thickening. Periappendiceal inflammatory changes are present. No fluid collection to indicate abscess. Vasculature and Lymph nodes: Normal caliber aorta. No abdominal or pelvic lymphadenopathy. Musculoskeletal: No concerning osseous lesion. IMPRESSION: 1. Acute appendicitis. No perforation, abscess formation, or bowel obstruction. Dictated by: Dictated on workstation # [id number]
--- NOTE | 2018-06-11 21:23 | Consultation ---
History of Present Illness History of Present Illness Patient Consulted On(mimi/time) 06/11/18 21:17 Time Seen by Provider: 18:01 History of Present Illness Surgery asked to consult regarding RLQ pain, appendicitis. HPI per ED: 33-year-old female patient presents to the emergency department with complaints of right lower abdominal pain beginning yesterday. States the pain woke her up from sleep yesterday. Pain has progressively gotten worse. Does have some nausea without vomiting or diarrhea. Pain is worse with riding in the car and movement. Patient has been nothing by mouth since 1100. Has not had solid food since yesterday afternoon. Timing/Duration: yesterday, getting worse Severity/Quality: aching, stabbing Location: RLQ Radiation: suprapubic Activities at Onset: sleep Prior Genitourinary Problems: none Sexual New Home History: less than 2 months ago, single partner Modifying Factors: Worsens With Movement, Worsens With Palpation When I spoke to the pt she rates the pain as 6 out of 10. States it is not radiating anywhere and only the pain medications have made it better. Allergies and Home Medications Allergies Coded Allergies: No Known Drug Allergies (Verified , 07/31/08) Patient Home Medication List Home Medication List Reviewed: Yes Past Nffbznk-Vwnqkh-Jkcjbo Hx Patient Social History Alcohol Use: Occasionally Uses Recreational Drug Use: No Smoking Status: Current Everyday Smoker Recent Foreign Travel: No Contact w/Someone Who Travel: No Recent Infectious Disease Expo: No Recent Hopitalizations: No (knee surgery, T & A) Immunizations Up To Date Tetanus Booster (TDap): Unknown Date of Influenza Vaccine: Jun 05, 2013 Seasonal Allergies Seasonal Allergies: No Surgeries History of Surgeries: Yes (LEFT KNEE SCOPE; WISDOM TEETH EXTRACTED ) Surgeries: Adenoidectomy, Orthopedic, Tonsillectomy Respiratory History of Respiratory Disorde: No Cardiovascular History of Cardiac Disorders: No Neurological History of Neurological Disord: No Reproductive System : No Hx : 8 Hx Para: 6 Hx Total # of Abortions (Spona: 2 Hx Reproductive Disorders: No Sexually Transmitted Disease: Yes (HISTORY OF GONORRHEA) 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 Genitourinary History of Genitourinary Disor: No Gastrointestinal History of Gastrointestinal Di: No Musculoskeletal History of Musculoskeletal Dis: Yes (LEFT KNEE SCOPE) Endocrine History of Endocrine Disorders: No HEENT History of HEENT Disorders: Yes (S/P T&A) HEENT Disorders: Tonsilitis Cancer History of Cancer: No Psychosocial History of Psychiatric Problem: Yes Behavioral Health Disorders: Anxiety, Depression Integumentary History of Skin or Integumenta: No Blood Transfusions History of Blood Disorders: No Adverse Reaction to a Blood Tr: No Family Medical History Significant Family History: Other Conditions/Hx Other Pt states she was adopted and does not know any family history. Family Medial History: Patient reports no known family medical history. Review of Systems-General Constitutional: chills; No diaphoresis, No dizziness EENTM: No blurred vision, No double vision, No mouth swelling, No epistaxis, No throat swelling Respiratory: No cough, No dyspnea on exertion, No hemoptysis Cardiovascular: No chest pain, No edema, No palpitations Gastrointestinal: RLQ, abdominal pain; No dysphagia, No hematemesis, No jaundice; loss of appetite Musculoskeletal: No back pain, No gout, No joint pain Skin: No change in color, No change in hair/nails Psychiatric/Neurological: Denies Anxiety, Denies Pre-Existing Deficit, Denies Seizure, Denies Tingling Other Pt denies any abnormal bleeding or bruising and no heat or cold intolerance Physical Exam-General Problems Physical Exam Vital Signs Vital Signs - First Documented 06/11/18 15:27 Temp 96.1 Pulse 74 Resp 18 B/P (MAP) 123/77 (92) Pulse Ox 99 O2 Delivery Room Air Capillary Refill : Less Than 3 Seconds General Appearance: WD/WN, mild distress Eyes: Bilateral Eye PERRL, Bilateral Eye EOMI HEENT: pharynx normal; No scleral icterus (R), No scleral icterus (L), No pale conjunctivae (R), No pale conjunctivae (L) Neck: non-tender, full range of motion, supple, normal inspection Respiratory: chest non-tender, lungs clear, normal breath sounds, no respiratory distress, no accessory muscle use Cardiovascular: regular rate, rhythm, no edema, no murmur Gastrointestinal: normal bowel sounds, soft, guarding, rebound, tenderness, hernia (small umbilical) Back: no CVA tenderness, no vertebral tenderness Extremities: normal range of motion, non-tender, normal inspection, no pedal edema, no calf tenderness 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, no motor/sensory deficits, alert, normal mood/affect, oriented x 3 Skin: normal color, warm/dry Lymphatic: no adenopathy (neck, axilla or groin) Data Review Labs Laboratory Tests 06/11/18 16:55: Urine Color YELLOW, Urine Clarity VERY CLOUDYH, Urine pH 6.5, Urine Specific [place] 1.015L, Urine Protein 1+H, Urine Glucose (UA) NEGATIVE, Urine Ketones 2+ H, Urine Nitrite NEGATIVE, Urine Bilirubin NEGATIVE, Urine Urobilinogen 1, Urine Leukocyte Esterase 2+H, Urine RBC (Auto) 1+H, Urine RBC 0-2, Urine WBC 10- 25H, Urine Squamous Epithelial Cells 25-50H, Urine Crystals NONE, Urine Bacteria MODERATEH, Urine Casts NONE, Urine Mucus MODERATEH, Urine Culture Indicated YES 06/11/18 17:03: White Blood Count 9.2, Red Blood Count 4.64, Hemoglobin 14.9, Hematocrit 44, Mean Corpuscular Volume 95, Mean Corpuscular Hemoglobin 32, Mean Corpuscular Hemoglobin Concent 34, Red Cell Distribution Width 12.8, Platelet Count 275, Mean Platelet Volume 10.0, Neutrophils (%) (Auto) 62, Lymphocytes (%) (Auto) 28 , Monocytes (%) (Auto) 7, Eosinophils (%) (Auto) 2, Basophils (%) (Auto) 1, Neutrophils # (Auto) 5.7, Lymphocytes # (Auto) 2.6, Monocytes # (Auto) 0.7, Eosinophils # (Auto) 0.2, Basophils # (Auto) 0.1, Sodium Level 139, Potassium Level 3.5L, Chloride Level 104, Carbon Dioxide Level 23, Anion Gap 12, Blood Urea Nitrogen 7, Creatinine 0.73, Estimat Glomerular Filtration Rate > 60, BUN/ Creatinine Ratio 10, Glucose Level 87, Calcium Level 9.8, Corrected Calcium , Total Bilirubin 0.8, Aspartate Amino Transf (AST/SGOT) 19, Alanine Aminotransferase (ALT/SGPT) 23, Alkaline Phosphatase 64, C-Reactive Protein High Sensitivity 4.49H, Total Protein 8.1, Albumin 4.8H Assessment/Plan Assessment/Plan Assessment/Plan Acute Appendicitis CT confirmed acute appendicitis; plan is NPO, IV fluids, IV ABX, pain control and will take pt to the OR for Laparoscopic appendectomy possible open. Discussed the procedure with the pt including all risks and complications, not limited to pain , bleeding, infection, scar and damage to bowel. All questions answered to pt' s satisfaction and will go to the OR abhay. SIMA ONEAL DO Jun 11, 2018 21:23
[2018-06-11] MEDS ORDERED: LIDOCAINE/EPI 1%-1:200,000 (XYLOCAINE) 10 ML VIAL ONE (22:11)
[2018-06-11] MEDS ORDERED: ROCURONIUM 10 MG/ML 5 ML SYRINGE IV ONE (22:20)
[2018-06-11] MEDS ORDERED: SEVOFLURANE (ULTANE) 15 ML INHAL SOLN ONE ×3 (22:20→22:57)
[2018-06-11] MEDS ORDERED: NEOSTIGMINE 1 MG/ML 5 ML SYRINGE ONE (22:20)
[2018-06-11] MEDS ORDERED: GLYCOPYRROLATE 0.2 MG/ML (ROBINUL) 2 ML VIAL ONE ×2 (22:20→23:04)
[2018-06-11] MEDS ORDERED: MIDAZOLAM 2 MG/2 ML (VERSED) VIAL ONE (22:20)
[2018-06-11] MEDS ORDERED: DEXAMETHASONE 10 MG/ML (DECADRON) 1 ML VIAL ONE (22:20)
[2018-06-11] MEDS ORDERED: fentaNYL INJECTION 100 MCG/2 ML AMP ONE (22:20)
[2018-06-11] MEDS ORDERED: LIDOCAINE PF 2% 5 ML (XYLOCAINE) VIAL ONE (22:20)
[2018-06-11] MEDS ORDERED: ONDANSETRON 4 MG/2 ML (SDV) Z0FRAN ONE (22:20)
[2018-06-11] MEDS ORDERED: proPOfol 200 MG/20 ML (DIPRIVAN) VIAL IV ONE (22:20)
[2018-06-11] MEDS ORDERED: LACTATED RINGERS 1,000 ML IV PRN (22:22)
[2018-06-11] MEDS ORDERED: HYDROmorphone 2 MG/ML VIAL (DILAUDID) IV ONE (22:30)
[2018-06-11] MEDS ORDERED: MEPERIDINE (DEMEROL) INJ 50 MG/ML IVP ONE (22:30)
[2018-06-11] MEDS ORDERED: morphine INJ 10 MG/ML 1ML (SYR OR VIAL) IVP ONE (22:30)
[2018-06-11] MEDS ORDERED: metroNIDAZOLE 500MG/100ML IVPB 100 ML ONE (22:52)
[2018-06-11] MEDS ORDERED: ceFAZolin 1,000 MG/10 ML (ANCEF) VIAL ONE (22:52)
--- NOTE | 2018-06-11 23:08 | Progress Note-Post Operative ---
Post-Operative Progess Note Surgeon (s)/Dry Chain Puller (s) Surgeon SIMA ONEAL DO Dry Chain Puller: Anna Pre-Operative Diagnosis Acute Appy Post-Operative Diagnosis same Procedure & Operative Findings Date of Procedure 06/11/18 Procedure Performed/Findings Lap appy Anesthesia Type GET Estimated Blood Loss Estimated blood loss (mL): scant Specimens/Packing Specimens Removed SIMA Aguilar DO Jun 11, 2018 23:08
--- OUTSIDE RECORDS SUMMARY | 2018-06-11 23:21 | XMS REPORT | Clinical Summary ---
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
--- OUTSIDE RECORDS SUMMARY | 2018-06-11 23:22 | XMS REPORT | Continuity of Care Document ---
Author Author [facility] Organization [facility] Address Unknown Phone Unavailable Allergies Active Description Code Type Severity Reaction Onset Reported/Identified Relationship to Patient Clinical Status Yes No Known Drug Allergies [id number] Drug Allergy Unknown N/A 07/31/2008 Medications There [...] 09/22/17 01:50 Bacterial blood culture NG NRG Complete urinalysis with reflex to culture - 06/11/18 16:55 Urine color determination YELLOW NRG Urine clarity determination VERY CLOUDY NRG Urine pH measurement by test strip 6.5 5-9 Specific gravity of urine by test strip 1.015 1.016- 1.022 Urine protein assay by test strip, semi-quantitative 1+ NEGATIVE Urine glucose detection by automated test strip NEGATIVE NEGATIVE Erythrocytes detection in urine sediment by light microscopy 1+ NEGATIVE Urine ketones detection by automated test strip 2+ NEGATIVE Urine nitrite detection by test strip NEGATIVE NEGATIVE Urine total bilirubin detection by test strip NEGATIVE NEGATIVE Urine urobilinogen measurement by automated test strip (mass/volume) 1 mg/dL NORMAL Urine leukocyte esterase detection by dipstick 2+ NEGATIVE Automated urine sediment erythrocyte count by microscopy (number/high power field) [HPF] NRG Automated urine sediment leukocyte count by microscopy (number/high power field ) [HPF] NRG Bacteria detection in urine sediment by light microscopy MODERATE NRG Squamous epithelial cells detection in urine sediment by light microscopy 25-50 NRG Crystals detection in urine sediment by light microscopy NONE NRG Casts detection in urine sediment by light microscopy NONE NRG Mucus detection in urine sediment by light microscopy MODERATE NRG Complete urinalysis with reflex to culture YES NRG Complete blood count (CBC) with automated white blood cell (WBC) differential - 06/11/18 17:03 Blood leukocytes automated count (number/volume) 9.2 10*3/uL 4.3-11.0 Blood erythrocytes automated count (number/volume) 4.64 10*6/uL 4.35-5.85 Venous blood hemoglobin measurement (mass/volume) 14.9 g/dL 11.5-16.0 Blood hematocrit (volume fraction) 44 % 35-52 Automated erythrocyte mean corpuscular volume 95 [foz_us] 80-99 Automated erythrocyte mean corpuscular hemoglobin (mass per erythrocyte) 32 pg 25-34 Automated erythrocyte mean corpuscular hemoglobin concentration measurement ( mass/volume) 34 g/dL 32-36 Automated erythrocyte distribution width ratio 12.8 % 10.0-14.5 Automated blood platelet count (count/volume) 275 10*3/uL 130-400 Automated blood platelet mean volume measurement 10.0 [foz_us] 7.4-10.4 Automated blood neutrophils/100 leukocytes 62 % 42-75 Automated blood lymphocytes/100 leukocytes 28 % 12-44 Blood monocytes/100 leukocytes 7 % 0-12 Automated blood eosinophils/100 leukocytes 2 % 0-10 Automated blood basophils/100 leukocytes 1 % 0-10 Blood neutrophils automated count (number/volume) 5.7 10*3 1.8-7.8 Blood lymphocytes automated count (number/volume) 2.6 10*3 1.0-4.0 Blood monocytes automated count (number/volume) 0.7 10*3 0.0-1.0 Automated eosinophil count 0.2 10*3/uL 0.0-0.3 Automated blood basophil count (count/volume) 0.1 10*3/uL 0.0-0.1 Comprehensive metabolic panel - 06/11/18 17:03 Serum or plasma sodium measurement (moles/volume) 139 mmol/L 135-145 Serum or plasma potassium measurement (moles/volume) 3.5 mmol/L 3.6-5.0 Serum or plasma chloride measurement (moles/volume) 104 mmol/L 98-107 Carbon dioxide 23 mmol/L 21-32 Serum or plasma anion gap determination (moles/volume) 12 mmol/L 5-14 Serum or plasma urea nitrogen measurement (mass/volume) 7 mg/dL 7-18 Serum or plasma creatinine measurement (mass/volume) 0.73 mg/dL 0.60-1.30 Serum or plasma urea nitrogen/creatinine mass ratio 10 NRG Serum or plasma creatinine measurement with calculation of estimated glomerular filtration rate > NRG Serum or plasma glucose measurement (mass/volume) 87 mg/dL 70-105 Serum or plasma calcium measurement (mass/volume) 9.8 mg/dL 8.5-10.1 Serum or plasma total bilirubin measurement (mass/volume) 0.8 mg/dL 0.1-1.0 Serum or plasma alkaline phosphatase measurement (enzymatic activity/volume) 64 U/L 40-136 Serum or plasma aspartate aminotransferase measurement (enzymatic activity/ volume) 19 U/L 5-34 Serum or plasma alanine aminotransferase measurement (enzymatic activity/volume ) 23 U/L 0-55 Serum or plasma protein measurement (mass/volume) 8.1 g/dL 6.4-8.2 Serum or plasma albumin measurement (mass/volume) 4.8 g/dL 3.2-4.5 Serum or plasma C reactive protein measurement (mass/volume) - 06/11/18 17:03 Serum or plasma C reactive protein measurement (mass/volume) 4.49 mg /dL 0.00-0.50 Encounters ACCT No. Visit Date/Time Discharge Status Pt. Type Provider Facility Loc./Unit Complaint [id number] 09/22/2017 00:19:00 09/22/2017 03:13:00 DIS Emergency RANDALL HUDSON DO [facility] ER CHEST PAIN FOR 2 MONTHS [id number] 01/03/2014 07:48:00 01/03/2014 23:59:59 CLS Outpatient TONIO MEDINA MD [facility] RAD THREATENED AB [id number] 12/18/2013 12:57:00 12/18/2013 17:04:00 DIS Emergency RON MEDINA MD [facility] ER POSSIBLE MISCARRIAGE [id number] 06/03/2013 12:30:00 06/05/2013 13:30:00 DIS Inpatient TONIO MEDINA MD [facility] WS CONTRACTIONS [id number] 04/02/2013 11:13:00 04/02/2013 13:30:00 DIS Outpatient TONIO MEDINA MD [facility] WSo CONTRACTIONS [id number] 02/06/2013 15:40:00 02/07/2013 13:15:00 DIS Inpatient TONIO MEDINA MD [facility] WS PRE-TERM LABOR [id number] 12/24/2012 12:05:00 12/24/2012 23:59:59 CLS Outpatient TONIO MEDINA MD [facility] RAD SIZE DATE DIS [id number] 06/11/2018 17:20:00 Document Registration [id number] 08/28/2015 19:47:00 Document Registration [id number] 08/20/2010 20:05:00 Document Registration [id number] 08/20/2010 11:58:00 Document Registration [id number] 04/30/2010 01:04:00 Document Registration [id number] 04/19/2010 15:04:00 Document Registration
[2018-06-11] MEDS ORDERED: ONDANSETRON 4 MG/2 ML (SDV) Z0FRAN IVP PRN (23:30)
[2018-06-12] MEDS: LACTATED RINGERS 1,000 ML IV SCH ×2 (00:54→09:26)
[2018-06-12] MEDS: morphine INJ 10 MG/ML 1ML (SYR OR VIAL) IVP PRN ×5 (01:02→11:15)
[2018-06-12] MEDS: ONDANSETRON 4 MG/2 ML (SDV) Z0FRAN IVP PRN ×2 (01:10→06:20)
[2018-06-12 04:44] LABS: BASOPHILS % (AUTO) 0 % (0-10); EOSINOPHILS % (AUTO) 0 % (0-10); HEMATOCRIT 39 % (35-52); HEMOGLOBIN 12.9 G/DL (11.5-16.0); LYMPHOCYTES # (AUTO) 0.8 X 10^3 (1.0-4.0); LYMPHOCYTES % (AUTO) 7 % (12-44); MEAN CORPUSCULAR HEMOGLOBIN 33 PG (25-34); MEAN CORPUSCULAR HGB CONC 34 G/DL (32-36); MEAN CORPUSCULAR VOLUME 97 FL (80-99); MEAN PLATELET VOLUME 10.2 FL (7.4-10.4); MONOCYTES # (AUTO) 0.1 X 10^3 (0.0-1.0); MONOCYTES % (AUTO) 1 % (0-12); NEUTROPHILS # (AUTO) 9.8 X 10^3 (1.8-7.8); NEUTROPHILS % (AUTO) 92 % (42-75); PLATELET COUNT 265 10^3/uL (130-400); RED BLOOD COUNT 3.96 10^6/uL (4.35-5.85); RED CELL DISTRIBUTION WIDTH 13.1 % (10.0-14.5); WHITE BLOOD COUNT 10.7 10^3/uL (4.3-11.0)
--- NOTE | 2018-06-12 04:52 | OPERATIVE REPORT ---
DATE OF SERVICE: PREOPERATIVE DIAGNOSIS: Acute appendicitis. POSTOPERATIVE DIAGNOSES: 1. Acute appendicitis. 2. Right inguinal hernia. PROCEDURE: Laparoscopic appendectomy. SURGEON: Cabrera Chaney DO. GUEST HISTORY CLERK: Toy Castillo DO. ANESTHESIA: General endotracheal tube. SPECIMEN: Appendix. BLOOD LOSS: Scant. FLUIDS: Per anesthesia. POSTOPERATIVE CONDITION: Stable. INDICATION FOR PROCEDURE: The patient is a 33-year-old female with right lower quadrant pain, rebound, guarding and a CAT scan read as acute appendicitis. FINDINGS: The patient had an acute appendicitis. PROCEDURE NOTE: After informed consent was obtained, the patient was brought to the operating room, placed on the table in supine position. She was sterilely prepped and draped in normal fashion. Local lidocaine was used to infiltrate the skin below the umbilicus. Made incision with #11 blade, carried down to skin and subcutaneous tissue, then deepened down to subcutaneous tissue with Bovie electrocautery down to the fascia. Fascia incised with electrocautery. Bluntly entered the abdomen, swept a finger around, placed 0 Vicryl [id number] suture and placed an 11 mm trocar port under direct visualization. Created pneumoperitoneum, placed 2 more ports in normal fashion using local lidocaine, 11 blade for stab incision and the VersaStep system, all done under direct visualization, one suprapubically and one in the left lower quadrant. The patient then placed slightly Trendelenburg and rotated left, able to move the omentum out away. Saw right inguinal hernia, took a picture of this then noted the appendix inflamed with omentum stuck over the tip of it. Pushed the omentum away, able to grasp the appendix and then come across the mesoappendix in a stepwise fashion with the LigaSure, clamping, coagulating and transecting into this fashion coming all the way across the appendix until it was freed up and only attached to the cecum, switched to a 5 mm camera, brought Endo-ROSARIO placed across the base of the appendix, clamped and fired, thereby transecting the appendix. Then placed a bag in the abdomen, placed the appendix in the bag and removed through the supraumbilical incision. Then looked around, no other obvious pathology. Removed all ports under direct visualization, the abdomen and pneumoperitoneum to escape. Closed an infraumbilical incision with 0 Vicryl [id number] suture previously placed. Copiously irrigated all incisions with normal saline. Closed the 2 small 5 mm incisions with single interrupted 4-0 undyed Monocryl subcuticular stitch. Closed the infraumbilical incision with 3 interrupted 4-0 undyed Monocryl subcuticular stitches. Area was cleaned and dried. Dermabond placed as well as Band-Aids. The patient then transferred to recovery room in stable condition. Sponge and needle count correct at the end of the case. Dr. Castillo assisted in this case helping to make incisions and close incisions as well as identify anatomy, hold out away as well as run the camera. Job ID: [id number] DocumentID: [id number] Dictated Date: 06/11/2018 23:16:42 Sweep Press Operator Date: 06/12/2018 04:51:19 Dictated By: CABRERA CHANEY DO
[2018-06-12 05:03] LABS: ALANINE AMINOTRANSFERASE 19 U/L (0-55); ALBUMIN 4.1 GM/DL (3.2-4.5); ALKALINE PHOSPHATASE 56 U/L (40-136); BILIRUBIN,TOTAL 0.7 MG/DL (0.1-1.0); BUN/CREATININE RATIO 11; CALCIUM 8.5 MG/DL (8.5-10.1); CARBON DIOXIDE 22 MMOL/L (21-32); CHLORIDE 108 MMOL/L (98-107); CREATININE SERUM 0.72 MG/DL (0.60-1.30); GFR ESTIMATED > 60; GLUCOSE 138 MG/DL (70-105); SODIUM 138 MMOL/L (135-145); TOTAL PROTEIN 6.6 GM/DL (6.4-8.2)
[2018-06-12] MEDS ORDERED: metroNIDAZOLE 500MG/100ML IVPB 100 ML IV SCH (07:00)
[2018-06-12] MEDS ORDERED: ceFAZolin INJECTION 1,000 MG in NS (IVPB) 50 ML IV SCH (07:00)
[2018-06-12 08:04] VITALS: BP 95/53
--- NOTE | 2018-06-12 09:06 | Anesthesia-General Post-Op ---
General Patient Condition Mental Status/LOC: Same as Preop Cardiovascular: Satisfactory Nausea/Vomiting: Absent Respiratory: Satisfactory Pain: Controlled Complications: Absent Post Op Complications Complications None Follow Up Care/Instructions Patient Instructions None needed. Anesthesia/Patient Condition Patient Condition Patient is doing well, no complaints, stable vital signs, no apparent adverse anesthesia problems. No complications reported per nursing. CHELI GUTIÉRREZ CRNA Jun 12, 2018 09:06
[2018-06-12] MEDS ORDERED: ACHD5005 PO (10:30)
--- NOTE | 2018-06-12 10:31 | Discharge Inst-Surgical ---
Discharge Inst-Surgical Depart Medication/Instructions New, Converted or Re-Newed RX: RX Given to Pt/Family Patient Instructions Follow up Appt: Make appointment for 1 week. [phone] Instructions: No lifting greater than 10 pounds. No strenuous activity. May shower in 24 hours, no tub bath or soaking. Use incentive spirometer at home as directed. No Smoking Skin/Wound Care: You need to leave the Dermabond on over incision it will fall off on its own. Symptoms to Report: Appetite Changes, Extremity Discoloration, Numbness/Tingling, Swelling Increased , Bleeding Excessive, Eyesight Changes, Pain Increased, Urine Color Change, Constipation(Persistent), Fever over 101 degree F, Pain/Pressure in chest, Urinating Difficulty, Cough Up/Vomit Blood, Heart Beat Irreg/Pounding, Pain/ Pressure in jaw, Vaginal Bleeding Increase, Cramps in feet or legs, Lightheadedness, Pain/Pressure in shoulder, Diarrhea(Persistent), Memory Changes Suddenly, Questions/Concerns, Weight gain consecutive days, Dizziness/ Fainting, Nausea/Vomiting, Shortness of Breath, Weight gain over 2 pounds If questions or concerns contact your physician Or seek help at emergency department. Activity Activity as Tolerated: Yes Activity Instructions: Avoid Stress to Incision Driving Instructions: No Driving/Refer to Dr. Cruz Discharge Diet: No Restrictions Diet After 24 Hours: Clear Liquid if Nauseous If Any Problems/Questions/Issu: Contact Your Physician, Go to Emergency Room Skin/Wound Care Infection Signs and Symptoms: Increased Redness, Foul Odor of Wound, Increased Drainage, Skin Itchy or Has a Rash, Increased Swelling, Temperature Above 101 F Bathing Instructions: Shower Stitches/Mary/Dermabond Dis: Dermabond Ice Pack: Ice On and Off Site (as needed for pain) SIMA ONEAL DO Jun 12, 2018 10:31
[2018-06-12] MEDS ORDERED: HYDROcodone/APAP 5 MG/325 MG (LORTAB) TAB PO NR (12:15)
[2018-06-12 13:20] VITALS: BP 95/53
== END 2018-06-12 13:25 | disposition home or self-care (01) ==
LOC: EDUNIT# 15:17 → ER 15:18 → 4TH 23:16 → UNDOADMOB 23:16 → SDC 23:16 → UNDODISOB 06-12 13:25
PROVIDERS: ATTEND Surgery
DX: K35.80 Unspecified acute appendicitis (principal); K40.90 Unilateral inguinal hernia, without obstruction or gangrene, not specified as recurrent; F17.210 Nicotine dependence, cigarettes, uncomplicated; F41.9 Anxiety disorder, unspecified; F32.9 Major depressive disorder, single episode, unspecified
CPT/HCPCS: 36415; 74177; 80053; 81000; 84703; 85025; 86141; 87077; 87081; 87088